=== PATIENT | female | born 2005 | race Caucasian/White ===

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

== ENCOUNTER 2023-12-12 18:29 | Outpatient (RCR) | payer BC, SELFPAY ==
[2023-12-12 19:05] VITALS: BP 127/77; PULSE 88
== END 2024-03-11 23:59 | disposition home or self-care (01) ==
LOC: ANHOBOP 18:29
PROVIDERS: Visit Provider Obstetrics & Gynecology
DX: O36.8120 Decreased fetal movements, second trimester, not applicable or unspecified (principal); Z3A.27 27 weeks gestation of pregnancy
CPT/HCPCS: 59025

== ENCOUNTER 2023-12-24 19:16 | Observation (INO) | payer BC, MEDICAID, SELFPAY ==
--- NOTE | ~2023-12-24 | XR_ITS ---
XR chest 2V Ordering provider: Yolanda Meza MD History: 18 years Female with . cough and fever, 30 WKS , SHIELDED . Comparison: July 12, 2021 FINDINGS: MEDIASTINUM: The cardiac silhouette is not enlarged. LUNGS: No effusions or pneumothorax. Bilateral airspace disease suggestive of pneumonia more on the l eft side is seen in the lower lobes. OTHER: No free air under the diaphragm. IMPRESSION: Bilateral basal pneumonia more on the left side. Reviewed, dictated and finalized at location A.
--- NOTE | ~2023-12-24 | US_ITS ---
EXAMINATION: US OB BPP wo non-stress DATE: 12/26/2023 08:03 INDICATION: Fever. Tachycardia. TECHNIQUE: Real-time pelvic ultrasound was performed. The interpreting radiologist was not present fo r the study. COMPARISON: None. FINDINGS: There is a single living fetus in breech presentation. The placenta is posterior. cardiac acti vity and movement are demonstrated. heart rate is 158 beats per minute (bpm). Biophysical profile performed by the technologist: breathing (30 sec sustained breathing in 30 minutes): 2 out of 2 movement (3 gross body movements in 30 minutes): 2 out of 2 tone (one episode of phigsxt-aujhqxwol-lmfdwia limb movement): 2 out of 2 Amniotic fluid pocket (2 cm): 2 out of 2 Total score: 8 out of 8 IMPRESSION: 1. Single living intrauterine in breech presentation with heart rate of 158 bpm. 2. Normal placenta. 3. Biophysical profile 8 out of 8. Reviewed, dictated and finalized at location B.
[2023-12-24 19:19] VITALS: BP 148/68; PULSE 143; RESP 17; TEMP 37.2; O2SAT 100
--- NOTE | 2023-12-24 19:23 | ECG_ITS ---
Test Date: 2023-12-24 19:27:40 Measurements Intervals [place] Rate: 137 P: 61 RI: 120 QRS: 45 QRSD: 81 T: -22 QT: 261 QTc: 395 Interpretive Statements SINUS TACHYC[address] ST DEVIATION AND MODERATE T-WAVE ABNORMALITY, CONSIDER ANTEROLATERAL ISCHEMIA [-0.1+ mV T WAVE IN V3-V6] No previous ECG available for comparison Electronically Signed On 12-25-2023 08:52:10 CDT by Cortez Santiago M.D.
[2023-12-24] MEDS: ACETAMINOPHEN 500 MG TABLET 1000 MG PO (19:42)
[2023-12-24 19:43] LABS: BEDSIDEPREGUCG Positive
[2023-12-24 19:57] VITALS: PULSE 128
[2023-12-24 20:01] VITALS: RESP 18; O2SAT 100
[2023-12-24 20:05] LABS: Basophils Percent Auto 0.2 % (0.2-1.2); Eosinophils Percent Auto 0.1 % (0-4.4); Hematocrit 35.1 % (37.0-47.0); Hemoglobin 12.1 g/dL (12.0-15.0); Immature Granulocyte Absolute 0.06 K/mm3 (0.00-0.031); Immature Granulocyte Percent A 0.5 % (0-0.5); Lymphocytes Absolute Auto 1.12 K/mm3 (0.9-3.2); Lymphocytes Percent Auto 8.9 % (18.3-44.2); Mean Corpuscular HGB Conc 34.5 g/dl (32-36); Mean Corpuscular Volume 86.9 fl (80-100); Mean Platelet Volume 10.1 fl (7.4-10.4); Monocytes Absolute Auto 0.6 K/mm3 (0.1-0.6); Monocytes Percent Auto 4.7 % (2.6-8.5); Neutrophils Absolute Auto 10.8 K/mm3 (1.3-6.7); Neutrophils Percent Auto 85.6 % (45.5-73.1); Platelet Count Result 211 k/mm3 (150-375); Red Blood Count 4.04 M/mm3 (4.2-5.4); White Blood Count 12.6 K/mm3 (4.5-10.0)
[2023-12-24] MEDS: LACTATED RINGERS 1,000 ML 999 ML IV CONT ×2 (20:08→21:31)
[2023-12-24] MEDS: METOCLOPRAMIDE HCL INJ 10 MG/2 ML VIAL IV PUSH (20:08)
[2023-12-24 20:14] LABS: Add Urine Microscopic? YES; Appearance Urine Cloudy (Clear); Bacteria Urine None Seen /hpf; Bilirubin Urine Negative (Negative); Blood Urine Negative (Negative); Color Urine Yellow (Yellow); Glucose Urine UA Negative (Negative); Ketones Urine 1+ mg/dL (Negative); Leukocyte Esterase Ur Negative LEU/UL (Negative); Nitrate Urine Negative (Negative); Non Pathogenic Casts 0-2; Protein Urine Negative (Negative); RBC Urine 0-2 /hpf (0-2); Squamous Epithelial Cell Urine None Seen /hpf (Few); WBC Urine 0-5 /hpf (0-3)
[2023-12-24 20:15] LABS: Alanine Aminotransferase 14 U/L (6-35); Albumin Level 4.1 g/dL (3.5-5.1); Alkaline Phosphatase 115 U/L (38-126); Anion Gap 10 mmol/L (4-12); Aspartate Amino Transferase 21 U/L (14-36); Bilirubin,Total 0.4 mg/dL (0.2-1.3); Blood Urea Nitrogen 5 mg/dL (7-17); Carbon Dioxide 21 mmol/L (22-30); Chloride 102 mmol/L (98-107); Estimated CRCL calculation 135 ml/min; Estimated Glomerular Filt Rate > 60; Glucose 90 mg/dL (65-110); Potassium 3.7 mmol/L (3.4-5.0); Sodium 133 mmol/L (137-145)
[2023-12-24] MEDS: diphenhydrAMINE HCl INJ 50 MG/ML VIAL 25 MG IV PUSH (20:27)
--- NOTE | 2023-12-24 20:30 | ED.GENADULT ---
HPI - General Adult General Chief complaint: Unspecified Stated complaint: kidney issues - 29 weeks preg Time Seen by Provider: 12/24/23 19:30 History of Present Illness HPI narrative: Patient at 29 weeks a presents here after feeling like she is going to the bathroom more often than usual. She it went to the Urgent Care, but they had a fever and had rapid heart rate, and sent her to here. She denies any pain anywhere. This feels more frequency. No abdominal pain, does have some mild nausea. Related Data Home Medications Medication Instructions Recorded Confirmed ferrous sulfate 27 mg iron tablet 27 mg PO DAILY 07/31/23 12/19/23 vits no.126-ferrous fum tablet PO 07/31/23 11/21/23 28 mg iron-folic acid 800 mcg tablet (Classic ) Allergies Allergy/AdvReac Type Severity Reaction Status Date / Time Penicillins Allergy Severe Rash Verified 12/24/23 19:22 erythromycin base Allergy Mild Rash Verified 12/24/23 19:22 metoclopramide [From Reglan] AdvReac Mild Shakiness Verified 12/24/23 20:16 Review of Systems Review of Systems: All systems reviewed & are unremarkable except as noted in HPI and below PMFSH Past Medical History Medical History Depression Migraines Suppression of menses Surgical History Surgical History History of ear surgery Social History Social History Smoking status: Never smoker Alcohol intake: former Alcohol use details: pt currently Substance use: former Substance use type: marijuana Do You Feel Safe in your Home?: Yes Lack of Transportation: No Lack of Food: Never True Current Housing: I Have Housing Concerned About Future Housing: No Difficulty Paying Gas/Electric Bills: No Difficulty Paying for Meds: No Currently Unemployed: No Education: High School Diploma/GED Difficulty w/ Childcare or Family Care: Decline to Answer Living arrangements: alone Occupation/Education: occupation Gender identity (if verbalized by the patient): Female Sexual Orientation (if Verbalized by the Patient): Straight or Heterosexual Exam Narrative: EXAMINATION OF ORGAN SYSTEMS/BODY AREAS: Constitutional: Vital signs per nursing GENERAL:[No acute distress, non-toxic appearing.] HEAD: Normal with no signs of head trauma. EYES: EOMI, conjunctiva normal ENT: Hearing grossly intact LUNGS: Nonlabored breathing. HEART: Tachycardic ABD: [Soft], [nontender to palpation], gravid EXT: Normal range of motion SKIN: [No rashes or lesions.] NEURO: [Alert and oriented x 3. No gross focal sensory or strength deficits.] PSYCH: Normal affect Course Vital Signs Vital signs: Vital Signs Temperature 99.0 F 12/24/23 19:19 Pulse Rate 143 H 12/24/23 19:19 Respiratory Rate 17 12/24/23 19:19 Blood Pressure 148/68 H 12/24/23 19:19 Pulse Oximetry 100 12/24/23 19:19 Oxygen Delivery Room Air 12/24/23 19:19 Temperature 98.4 F 12/24/23 21:25 Pulse Rate 112 H 12/24/23 20:58 Respiratory Rate 18 12/24/23 20:58 Blood Pressure 112/60 12/24/23 20:58 Pulse Oximetry 100 12/24/23 20:58 Oxygen Delivery Room Air 12/24/23 19:19 Medical Decision Making MDM Narrative Medical decision making narrative: Patient presents with fevers, tachycardia, increased urinary frequency. Denies any pain, no chest pain or shortness of breath. Does have a very slight cough. Fluids and nausea medication ordered, she did have a reaction to the Reglan so she is given a small dose of Benadryl with improvement of her symptoms. On re-evaluation she is feeling fine, denies any symptoms or complaints, however her heart rate still tachycardic so I did give additional fluid boluses. On re-evaluation she still continues to deny any complaints but is still tachycardic and blood
[2023-12-24] MEDS: SODIUM CHLORIDE 0.9% IV 1,000 ML 999 ML IV CONT (20:33)
[2023-12-24 20:58] VITALS: BP 112/60; PULSE 112; RESP 18; O2SAT 100
[2023-12-24 21:25] VITALS: TEMP 36.9
[2023-12-24 21:28] LABS: Influenza A QL RT-PCR Negative (Negative); Influenza B QL RT-PCR Negative (Negative); RSV RNA, RT-PCR Negative (Negative); SARS-CoV-2 RNA PCR Negative (Negative)
[2023-12-24 23:57] VITALS: BP 94/45; PULSE 112; RESP 23; O2SAT 100
[2023-12-25] VITALS (30 sets, daily range): BP systolic 98–121; BP diastolic 39–68; PULSE 112–138; RESP 17–20; TEMP 36.1–39.9; O2SAT 96–100; BMI 26.0; BMI 25.4
[2023-12-25] MEDS: LACTATED RINGERS 1,000 ML 150 ML IV CONT ×3 (00:10→13:59)
--- NOTE | 2023-12-25 00:14 | ADMGEN ---
This patient, Salma Prasad, was admitted to Medical Room 343-01. Patient/family oriented to hospital policies and general routines including ID bracelet, bed and alarms, visiting hours, pain management, procedures, bathroom and other care routines, personal items, smoking policy, room service/diet, and visiting hours. Information on how to activate the Rapid Response Team has been discussed. Patient/Family are encouraged to report perceived risks to care and to ask questions if they do not understand what they are told or what they should do.
--- NOTE | 2023-12-25 08:42 | PC.NURSE ---
This patient, Salma Prasad, was transferred to [facility] on 12/25/23 at 0842. Personal belongings sent with patient. Report given to Naye. Appropriate documentation sent with patibrenda
--- NOTE | 2023-12-25 08:51 | OBADM ---
This patient, Salma Prasad, admitted to the OB room OB Post 115 for observation. Patient/family oriented to hospital policies and general routines including ID bracelet, bed and alarms, visiting hours, pain management, procedures, bathroom and other care routines, personal items, smoking policy, room service/diet, and visiting hours. Patient/Family are encouraged to report perceived risks to care and to ask questions if they do not understand what they are told or what they should do.
[2023-12-25] MEDS: ACETAMINOPHEN 500 MG TABLET 1000 MG PO ×3 (10:08→21:36)
--- NOTE | 2023-12-25 12:28 | PM.IMHP ---
H&P: HPI History of Present Illness Date/Time: 12/25/23 12:28 Chief Complaint: fever Narrative: Salma is a 18yo @ 30.2wks who presented to the ER with fevers and overall feeling unwell. She reports some urinary frequency/urgency. She has been having fevers; as high as 102, which decreased after tylenol. She reports some nausea, mild loose stool. She denies any URI symptoms. She has had a mild cough, not productive. She denies any abdominal pain. no vaginal bleeding. No change in vaginal discharge. Good movement. She has not necessarily been around anyone that she knows is sick, but does work at a daycare. RSV/influenza/covid testing was all negative. Her urine was cloudy/dirty-- concerning for pyelo. 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- [facility]/genetics referral - H/o UTIs-- now w/ first admission for pyelo Review of Systems Constitutional: Constitutional: Reports chills, Reports fever(s) and Denies headache(s) Eyes: Eyes: Denies change in vision ENT: Denies headache(s), Denies nasal congestion, Denies sinus pain and Denies sore throat Cardiovascular: Cardiovascular: Denies chest pain, Reports rapid heart rate and Denies dyspnea Respiratory: Respiratory: Reports cough, Denies excessive phlegm production, Denies dyspnea and Denies wheezing Gastrointestinal: Gastrointestinal: Denies abdominal pain, Denies heartburn, Reports loose stools and Reports nausea Genitourinary: Genitourinary: Denies abnormal vaginal bleeding, Reports urinary hesitancy, Reports urinary urgency and Denies vaginal discharge Integumentary/Breasts: Skin/Breast: Denies breast pain Neurologic: Denies headache(s) Psychiatric: Psychiatric: Denies anxiety and Denies depression PMF Past Medical History Medical History Depression Migraines Suppression of menses Surgical History Surgical History History of ear surgery Family History Family History (Updated 12/25/23 @ 00:16 by Rosibel Alanis RN) Mother Acute myocardial infarction Hypertension Sibling Asthma Grandparent Cerebrovascular accident History of blood clots Diabetes mellitus Hypertension Social History Social History Smoking status: Former smoker Alcohol intake: never Alcohol use details: pt currently Substance use: never Substance use type: marijuana Do You Feel Safe in your Home?: Yes Lack of Transportation: No Lack of Food: Never True Current Housing: I Have Housing Concerned About Future Housing: No Difficulty Paying Gas/Electric Bills: No Difficulty Paying for Meds: No Currently Unemployed: No Education: High School Diploma/GED Difficulty w/ Childcare or Family Care: No Living arrangements: alone Occupation/Education: occupation Gender identity (if verbalized by the patient): Female Sexual Orientation (if Verbalized by the Patient): Straight or Heterosexual Spiritual care concerns: No Meds Home Medications and Allergies Home Medications Medication Instructions Recorded Confirmed Type ferrous sulfate 27 mg iron tablet 27 mg PO DAILY 07/31/23 12/25/23 History vits no.126-ferrous fum 1 tablet PO DAILY 07/31/23 12/25/23 History 28 mg iron-folic acid 800 mcg tablet (Classic ) Allergies Allergy/AdvReac Type Severity Reaction Status Date / Time Penicillins Allergy Severe Rash Verified 12/24/23 19:22 erythromycin base Allergy Mild Rash Verified 12/24/23 19:22 metoclopramide [From Reglan] AdvReac Mild Shakiness Verified 12/24/23 20:16 Vital Signs Vital Signs - 24 hr 12/24/23 19:19 12/24/23 19:57 12/24/23 20:01 Temperature 99.0 F Pulse Rate 143 H 128 H Respiratory Rate 17 18 Blood Pressure 148/68 H Pulse Oximetry 100 100 Oxygen
[2023-12-25 15:16] LABS: Add Urine Microscopic? NO; Appearance Urine Clear (Clear); Bilirubin Urine Negative (Negative); Blood Urine Negative (Negative); Color Urine Yellow (Yellow); Glucose Urine UA Negative (Negative); Ketones Urine 1+ mg/dL (Negative); Leukocyte Esterase Ur Negative LEU/UL (Negative); Nitrate Urine Negative (Negative); Protein Urine Negative (Negative); Specific Grav Ur 1.008 (1.001-1.035)
[2023-12-25 18:07] LABS: Basophils Percent Auto 0.1 % (0.2-1.2); Eosinophils Percent Auto 0.1 % (0-4.4); Hematocrit 30.8 % (37.0-47.0); Hemoglobin 10.4 g/dL (12.0-15.0); Immature Granulocyte Absolute 0.08 K/mm3 (0.00-0.031); Immature Granulocyte Percent A 0.6 % (0-0.5); Lymphocytes Absolute Auto 1.03 K/mm3 (0.9-3.2); Lymphocytes Percent Auto 8.1 % (18.3-44.2); Mean Corpuscular HGB Conc 33.8 g/dl (32-36); Mean Corpuscular Hemoglobin 29.6 pg (26-34); Mean Corpuscular Volume 87.7 fl (80-100); Mean Platelet Volume 10.2 fl (7.4-10.4); Monocytes Absolute Auto 0.6 K/mm3 (0.1-0.6); Monocytes Percent Auto 4.3 % (2.6-8.5); Neutrophils Percent Auto 86.8 % (45.5-73.1); Platelet Count Result 193 k/mm3 (150-375); Red Blood Count 3.51 M/mm3 (4.2-5.4); Red Cell Distribution Width 13.1 % (11.5-14.5); White Blood Count 12.7 K/mm3 (4.5-10.0)
[2023-12-25 18:17] LABS: Lactic Acid Reflex 0.7 mmol/L (0.7-2.0)
[2023-12-25 18:19] LABS: Anion Gap 8 mmol/L (4-12); Blood Urea Nitrogen 4 mg/dL (7-17); Calcium 8.5 mg/dL (8.4-10.2); Carbon Dioxide 18 mmol/L (22-30); Chloride 106 mmol/L (98-107); Estimated CRCL calculation 135 ml/min; Estimated Glomerular Filt Rate > 60; Glucose 100 mg/dL (65-110); Potassium 3.1 mmol/L (3.4-5.0); Sodium 132 mmol/L (137-145)
[2023-12-25 18:22] LABS: CRP 7.2 mg/dL (<1.0)
--- NOTE | 2023-12-25 18:35 | WPDCN ---
Assessment and Plan Assessment and plan (1) Sepsis: Code(s): A41.9 - Sepsis, unspecified organism Status: Acute Assessment and Plan: Patient meets sepsis criteria with fever, tachycardia, and leukocytosis in the setting of pneumonia. Blood pressures have been stable and lactic acid level is within normal limits. Blood and sputum cultures have been ordered and are pending. (2) Bilateral pneumonia: Code(s): J18.9 - Pneumonia, unspecified organism Status: Acute Assessment and Plan: Chest x-ray shows basilar pneumonia, more so on the left. Repeat viral panel in a.m. given community prevalence of COVID right now. Continue ceftriaxone 2 g Q 24 hours. Unable to cover atypicals (erythromycin allergy; fluoroquinolones and tetracyclines are contraindicated in ). Legionella urinary antigen and mycoplasma IgM pending. (3) Hypokalemia: Code(s): E87.6 - Hypokalemia Status: Acute Assessment and Plan: Potassium will be replaced and monitored. Thus far she has received 5 L crystalloids IV. Sodium is dropping, hold further IV fluids and encourage oral intake. Repeat electrolytes ordered for a.m. Plan Thank you for allowing us to participate in this patient's care. Please do not hesitate to contact us with any questions. HPI Data of Consult Date/Time: 12/25/23 17:00 Requesting Physician: Yolanda Meza MD Consult Narrative Reason for consult: Pnuemonia. Narrative: This is a previously healthy very pleasant 18-year-old female ( at 32.2 weeks) who was admitted through the emergency department yesterday evening with fevers and generalized malaise, found to have pneumonia. The hospitalist service has been consulted in the setting. Two nights ago she started to feel unwell quite suddenly with generalized body aches, headache, malaise, nausea, poor appetite, nonproductive cough, loose stools, and fever up to 102? F. She has no known sick contacts but does work at a daycare. She denies sinus congestion, sore throat, chest pain, pleuritic pain, vomiting, dysuria, abdominal pain, and back pain. Since arrival: She has had a T-max of 103.5? F. She has been persistently tachycardic in the low 100s to 120s. Blood pressures have been stable. Labs drawn today were significant for WBC count 12.7, hemoglobin 10.4, platelet 193, sodium 132, potassium 3.1, BUN 4, creatinine 0.50, CRP 7.2. Urine obtained yesterday was positive for 1+ ketones. Chest x-ray showed bilateral basal pneumonia, more so on the left. She has been receiving acetaminophen for her fever, ceftriaxone, and lactated Ringer's. Review of Systems Review of Systems: 12 systems were reviewed and are negative except for as per HPI. [facility] Past Medical History Medical History (Updated 12/25/23 @ 19:20 by Keesha Garcia PA-C) Depression Migraines Surgical History Surgical History (Updated 12/25/23 @ 19:16 by Keesha Garcia PA-C) History of ear surgery Repair perforated eardrum. Family History Family History Mother Acute myocardial infarction Hypertension Sibling Asthma Grandparent Cerebrovascular accident History of blood clots Diabetes mellitus Hypertension Social History Social History (Updated 12/25/23 @ 19:17 by Keesha Garcia PA-C) Social History: Surrogate medical decision maker: Tia Prasad, mother. Code status: Full code. Smoking status: Former smoker Alcohol intake: never Substance use: never Do You Feel Safe in your Home?: Yes Lack of Transportation: No Lack of Food: Never True Current Housing: I Have Housing Concerned About Future Housing: No Difficulty Paying Gas/Electric Bills: No Difficulty Paying for Meds: No Currently Unemployed: No Education: High School Diploma/GED Difficulty w/ Childcare or Family Care: No Additional living arrangements comments: Lives wi
[2023-12-25 18:46] LABS: Procalcitonin 0.2 ng/mL
[2023-12-25] MEDS: FAMOTIDINE 20 MG/2 ML VIAL IV PUSH (20:05)
[2023-12-25] MEDS: ONDANSETRON INJ 4 MG/2 ML VIAL IV PUSH (20:06)
--- NOTE | 2023-12-25 20:15 | PC.NURSE ---
Called Mena Garcia hospitalist, reported temp 101.7. tylenol is not due another two hours. Hospitalist aware, no new orders.
[2023-12-25] MEDS: SODIUM CHLORIDE 0.9% IV 1,000 ML 100 ML IV CONT (21:00)
[2023-12-25] MEDS: POTASSIUM CHLORIDE INJ 40 MEQ in SODIUM CHLORIDE 0.9% IV 500 ML 130 MEQ IVPB (21:00)
[2023-12-25] MEDS: cefTRIAXone 2 GM/NS 100 ML 2 GM/100 ML BAG IVPB (22:55)
[2023-12-26] VITALS (73 sets, daily range): BP systolic 97–117; BP diastolic 34–66; PULSE 114–162; RESP 18; TEMP 37.6–39.9; O2SAT 89–100
[2023-12-26] MEDS: ACETAMINOPHEN 325 MG TABLET 650 MG PO ×5 (03:10→18:43)
[2023-12-26 04:48] LABS: Hematocrit 29.2 % (37.0-47.0); Hemoglobin 9.6 g/dL (12.0-15.0); Mean Corpuscular HGB Conc 32.9 g/dl (32-36); Mean Corpuscular Hemoglobin 29.1 pg (26-34); Mean Corpuscular Volume 88.5 fl (80-100); Mean Platelet Volume 10.2 fl (7.4-10.4); Platelet Count Result 175 k/mm3 (150-375); Red Cell Distribution Width 13.2 % (11.5-14.5); White Blood Count 12.7 K/mm3 (4.5-10.0)
[2023-12-26 05:11] LABS: Anion Gap 9 mmol/L (4-12); Carbon Dioxide 15 mmol/L (22-30); Chloride 107 mmol/L (98-107); Estimated CRCL calculation 135 ml/min; Estimated Glomerular Filt Rate > 60; Glucose 101 mg/dL (65-110); Magnesium 1.5 mg/dL (1.6-2.3); Potassium 3.1 mmol/L (3.4-5.0); Sodium 131 mmol/L (137-145)
[2023-12-26 05:14] LABS: Blood Urea Nitrogen < 2 mg/dL (7-17)
--- NOTE | 2023-12-26 06:54 | PM.OBPNVD ---
OB - PN: Subj Subjective Date/time seen: 12/26/23 07:15 Narrative: HD #2 Salma is a 18yo @ 30.3wks admitted with sepsis 2/2 pneumonia. She continues to be febrile overnight, getting Tylenol regularly. Having more of a productive cough, SOB with ambulating. Feeling good movements. No contractions, VB or LOF. No new symptoms overnight. Has tolerated regular diet (had emesis x1 yesterday, 12/24, after PO potassium). OB - PN: Obj Data Labs 12/26/23 04:50 12/26/23 05:00 Labs: Laboratory Results - last 24 hr 12/24/23 12/25/23 12/25/23 20:35 14:47 17:53 WBC RBC Hgb Hct MCV MCH MCHC RDW Plt Count MPV Immature Gran % (Auto) Neut % (Auto) Lymph % (Auto) [place] % (Auto) Eos % (Auto) Baso % (Auto) Lymph # (Auto) [place] # (Auto) Eos # (Auto) Baso # (Auto) Abs Immat Gran (auto) Absolute Neuts (auto) Absolute Nucleated RBC Nucleated RBC % Sodium 132 L Potassium 3.1 L Chloride 106 Carbon Dioxide 18 L Anion Gap 8 BUN 4 L Creatinine 0.50 L Estim Creat Clear Calc 135 Estimated GFR > 60 Glucose 100 Lactic Acid Calcium 8.5 C-Reactive Protein 7.2 H Procalcitonin Urine Color Yellow Urine Appearance Clear Urine pH 7.0 Ur Specific [place] 1.008 Urine Protein Negative Urine Glucose (UA) Negative Urine Ketones 1+ H Ur Blood (Man) Negative Urine Nitrate Negative Urine Bilirubin Negative Urine Urobilinogen 1.0 Ur Leukocyte Esterase Negative Influenza A (RT-PCR) Negative Influenza B (RT-PCR) Negative RSV (RT-PCR) Negative SARS-CoV-2 RNA (RT-PCR) Negative 12/25/23 12/25/23 17:54 17:55 WBC 12.7 H RBC 3.51 L Hgb 10.4 L Hct 30.8 L MCV 87.7 MCH 29.6 MCHC 33.8 RDW 13.1 Plt Count 193 MPV 10.2 Immature Gran % (Auto) 0.6 H Neut % (Auto) 86.8 H Lymph % (Auto) 8.1 L [place] % (Auto) 4.3 Eos % (Auto) 0.1 Baso % (Auto) 0.1 L Lymph # (Auto) 1.03 [place] # (Auto) 0.6 Eos # (Auto) 0.0 Baso # (Auto) 0.0 Abs Immat Gran (auto) 0.08 H Absolute Neuts (auto) 11.0 H Absolute Nucleated RBC 0.000 Nucleated RBC % 0.0 Sodium Potassium Chloride Carbon Dioxide Anion Gap BUN Creatinine Estim Creat Clear Calc Estimated GFR Glucose Lactic Acid 0.7 Calcium C-Reactive Protein Procalcitonin 0.2 Urine Color Urine Appearance Urine pH Ur Specific [place] Urine Protein Urine Glucose (UA) Urine Ketones Ur Blood (Man) Urine Nitrate Urine Bilirubin Urine Urobilinogen Ur Leukocyte Esterase Influenza A (RT-PCR) Influenza B (RT-PCR) RSV (RT-PCR) SARS-CoV-2 RNA (RT-PCR) Imaging Radiologist's impression: Impressions Chest X-Ray 12/25/23 15:04 IMPRESSION: Bilateral basal pneumonia more on the left side. OB - PN A/P Assessment and Plan (1) : Code(s): Z34.90 - Encounter for supervision of normal , unspecified, unspecified trimester Status: Acute (2) Sepsis: Code(s): A41.9 - Sepsis, unspecified organism Status: Acute (3) Bilateral pneumonia: Code(s): J18.9 - Pneumonia, unspecified organism Status: Acute Plan - Continues to remain febrile overnight, vitals otherwise stable, tachycardia noted (low 100's can be normal in ) - Continue tylenol 1000mg q6h PRN - Hospitalist team following; - Covid/rsv/influzena neg on admission; plan for repeat testing 12/26/23 AM - Continue Ceftriaxone 2g IV q24 hr ([place] pharmacy consulted due to pt's antibiotic allergies) - Urine, blood, sputum cultures pending - Testing for atypical pneumonia in urine pending (not currently being covered due to allergies/unsafe medications in ) - Giving IV potassium -- goal of 3.5 in - Will monitor strict I&O's; fluid requirements higher i
--- NOTE | 2023-12-26 07:12 | PC.NURSE ---
9570--Pt reports that she is 'feeling a bit better. No complaints at this time.
--- NOTE | 2023-12-26 07:20 | PC.NURSE ---
0720--Dr. Meza at bedside. Plan of care discussed.
--- NOTE | 2023-12-26 07:55 | PC.NURSE ---
0728--US at bedside for BPP.
--- NOTE | 2023-12-26 08:17 | PC.NURSE ---
0800--Pt feels chilly. Temperature taken. 102.1.
[2023-12-26] MEDS: LACTATED RINGERS 1,000 ML 75 ML IV CONT (08:28)
[2023-12-26 10:44] LABS: Influenza A QL RT-PCR Negative (Negative); Influenza B QL RT-PCR Negative (Negative); RSV RNA, RT-PCR Negative (Negative); SARS-CoV-2 RNA PCR Negative (Negative)
--- NOTE | 2023-12-26 11:06 | PC.NURSE ---
1106--Hospitalist at bedside. Plan of care discussed.
[2023-12-26] MEDS: FERROUS SULFATE DRIED 142 MG TABCR PO (14:01)
[2023-12-26] MEDS: MULTIVIT/MIN/PREN/FOL AC/IRON TABLET 1 TAB PO (14:02)
[2023-12-26] MEDS: IPRATROPIUM 0.5 MG/ALBUTEROL SULFATE 2.5 MG AMPUL.NEB 3 ML INHALATION (14:15)
--- NOTE | 2023-12-26 14:51 | PC.NURSE ---
1420--Respiratory at bedside to administer Neb treatment and incentive spirometer.
--- NOTE | 2023-12-26 16:03 | PM.IMPN ---
Progress Note: A&P Assessment and Plan (1) Depression: Code(s): F32.9 - Major depressive disorder, single episode, unspecified Status: Acute (2) Tachycardia: Code(s): R00.0 - Tachycardia, unspecified Status: Acute (3) Fever: Code(s): R50.9 - Fever, unspecified Status: Acute (4) Sepsis: Code(s): A41.9 - Sepsis, unspecified organism Status: Acute (5) Bilateral pneumonia: Code(s): J18.9 - Pneumonia, unspecified organism Status: Acute (6) Hypokalemia: Code(s): E87.6 - Hypokalemia Status: Acute (7) Hypomagnesemia: Code(s): E83.42 - Hypomagnesemia Status: Acute Plan The patient has a metabolic acidosis and hyponatremia. She has been switched to lactated Ringer's which may of the acidosis. She also has hypokalemia and hypo magnesemia. Check a BMP magnesium to assess the trend all of the above aforementioned labs. Check urine sodium and urine osmolality. Could be due to cough/pneumonia/emesis/low solute diet/sepsis. She believes her symptoms are improved today. Continue ceftriaxone, not giving coverage for atypical pneumonia due to and allergies. Pending mycoplasma and Legionella antigen. t max 102.1 Blood urine and sputum cultures are pending. A repeat quad viral screen was taken this morning which was negative again. Will defer DVT prophylaxis in the setting of to OB Gyne team. A obstetric profile this morning was 8/8. Full code Subjective Date/time seen: 12/26/23 16:03 Interval history: No major acute overnight events. Patient reports she had a worsening cough with yellow productive sputum overnight along with fevers. Morning they have began to resolve. She had emesis x1. No diarrhea. No abdominal pain. Review of Systems Review of Systems: All systems reviewed & are unremarkable except as noted in HPI and below (Subjective) Exam Const: General: comfortable and no acute distress Eyes: Pupils: Equal, round and reactive pupils present Neck: Neck: supple Resp: Effort & Inspection: normal respiratory effort Auscultation: clear to auscultation bilaterally Cardio: Rate: regular rate Rhythm: regular rhythm GI: GI Palp: Yes Soft to palpation Extrem: General: no edema Objective Data Vital Signs Vital Signs: Vital Signs - 24 hr 12/25/23 16:30 12/25/23 17:00 12/25/23 17:30 Temperature Pulse Rate 138 H 130 H 135 H Respiratory Rate Blood Pressure 110/50 L 110/53 L 119/58 L Pulse Oximetry Oxygen Delivery 12/25/23 17:48 12/25/23 18:00 12/25/23 18:30 Temperature 101.2 F H Pulse Rate 129 H 117 H Respiratory Rate Blood Pressure 116/59 L 111/60 Pulse Oximetry Oxygen Delivery 12/25/23 19:03 12/25/23 22:47 12/25/23 23:00 Temperature 100.8 F H Pulse Rate 122 H Respiratory Rate Blood Pressure 98/39 L Pulse Oximetry 96 Oxygen Delivery 12/25/23 23:32 12/26/23 01:08 12/26/23 01:13 Temperature 99.1 F Pulse Rate Respiratory Rate Blood Pressure Pulse Oximetry 92 96 Oxygen Delivery 12/26/23 01:00 12/26/23 03:05 12/26/23 03:07 Temperature 101.6 F H 103.3 F H Pulse Rate 138 H Respiratory Rate Blood Pressure 97/34 L Pulse Oximetry Oxygen Delivery 12/26/23 04:37 12/26/23 05:46 12/26/23 06:46 Temperature 102.3 F H 99.7 F H Pulse Rate 118 H Respiratory Rate Blood Pressure 117/60 Pulse Oximetry Oxygen Delivery 12/26/23 07:00 12/26/23 07:02 12/26/23 07:07 Temperature 100.8 F H Pulse Rate 118 H Respiratory Rate Blood Pressure 116/66 Pulse Oximetry 98 100 Oxygen Delivery 12/26/23 07:12 12/26/23 07:17 12/26/23 07:22 Temperature Pulse Rate Respiratory Rate Blood Pressure Pulse Oximetry 100 100 100 Oxygen Delivery 12/26/23 07:27 12/26/23 09:15 12/26/23 09:20 Temperature Pulse Rate Respiratory Rate Blood Pressure Pulse Oxim
[2023-12-26] MEDS: POTASSIUM CHLORIDE INJ 40 MEQ in SODIUM CHLORIDE 0.9% IV 500 ML 130 MEQ IVPB (16:28)
[2023-12-26 16:38] LABS: Basophils Percent Auto 0.3 % (0.2-1.2); Hematocrit 29.2 % (37.0-47.0); Hemoglobin 10.1 g/dL (12.0-15.0); Immature Granulocyte Absolute 0.08 K/mm3 (0.00-0.031); Immature Granulocyte Percent A 0.7 % (0-0.5); Lymphocytes Absolute Auto 0.71 K/mm3 (0.9-3.2); Lymphocytes Percent Auto 5.9 % (18.3-44.2); Mean Corpuscular HGB Conc 34.6 g/dl (32-36); Mean Corpuscular Hemoglobin 30.2 pg (26-34); Mean Corpuscular Volume 87.4 fl (80-100); Mean Platelet Volume 10.3 fl (7.4-10.4); Monocytes Absolute Auto 0.4 K/mm3 (0.1-0.6); Neutrophils Absolute Auto 10.8 K/mm3 (1.3-6.7); Neutrophils Percent Auto 90.1 % (45.5-73.1); Platelet Count Result 197 k/mm3 (150-375); Red Blood Count 3.34 M/mm3 (4.2-5.4); Red Cell Distribution Width 13.3 % (11.5-14.5)
[2023-12-26 16:53] LABS: Anion Gap 9 mmol/L (4-12); Calcium 8.1 mg/dL (8.4-10.2); Carbon Dioxide 16 mmol/L (22-30); Chloride 106 mmol/L (98-107); Estimated CRCL calculation 164 ml/min; Estimated Glomerular Filt Rate > 60; Glucose 115 mg/dL (65-110); Magnesium 1.6 mg/dL (1.6-2.3); Potassium 3.5 mmol/L (3.4-5.0); Sodium 131 mmol/L (137-145)
[2023-12-26 16:55] LABS: Blood Urea Nitrogen < 2 mg/dL (7-17)
--- NOTE | 2023-12-26 17:11 | PC.NURSE ---
1655--Ice packs placed under armpits and behind neck and knees.
--- NOTE | 2023-12-26 17:13 | PC.NURSE ---
1453--Message left with hospitalist.
--- NOTE | 2023-12-26 17:53 | PC.NURSE ---
1750--Dr. Valladares returned call. Will confer with Dr. Meza on adding antibiotic that is compatible with .
[2023-12-26] MEDS: CEFEPIME 2 GM/NS 50 ML 2 GM/50 ML BAG IVPB (18:38)
[2023-12-26 18:43] LABS: Sodium Urine Random 113 meq/L
[2023-12-26] MEDS: ONDANSETRON INJ 4 MG/2 ML VIAL IV PUSH (18:43)
[2023-12-26] MEDS: CALCIUM CARBONATE (TUMS) 500 MG (200 MG ELEMENTAL) PO (19:26)
--- NOTE | 2023-12-27 13:02 | PM.TDS ---
Transfer Discharge Sum: Prov Provider Date of admission: 12/24/23 23:14 Primary care physician: UNKNOWN,DOCTOR Admitting clinician: Yolanda Meza MD Attending physician on admission: Yolanda Meza Consults: Hospitalist team and ID Pharmacy Attending physician on discharge: Yolanda Meza Anticipated date of transfer: 12/26/23 Receiving physician/facility: [facility] -- Maternal Medicine team DS: Admitting Diagnosis Discharge Date 12/26/23 Admitting Diagnosis Sepsis DS: Discharge Diagnosis Discharge Diagnosis (1) Sepsis: Code(s): A41.9 - Sepsis, unspecified organism Status: Acute (2) Bilateral pneumonia: Code(s): J18.9 - Pneumonia, unspecified organism Status: Acute (3) : Code(s): Z34.90 - Encounter for supervision of normal , unspecified, unspecified trimester Status: Acute Transfer Discharge Sum: Med Medications Active and Home Medications: Home Medications ferrous sulfate 27 mg iron tablet 27 mg PO DAILY 07/31/23 [History Confirmed 12/25/23] vits no.126-ferrous fum 28 mg iron-folic acid 800 mcg tablet (Classic ) 1 tablet PO DAILY 07/31/23 [History Confirmed 12/25/23] Transfer Discharge Sum: Hosp Hospital Course Hospital course: Salma Prasad is a 18 yo @ 30.3wks who was transferred to [facility] Maternal medicine via speciality transport due to worsening condition of sepsis. She was admitted late on the evening of 12/24/23. She presented to the ER with fevers and overall feeling unwell. She reports some urinary frequency/urgency. She has been having fevers; as high as 102, which decreased after Tylenol. She reported some nausea, mild loose stool. She denied any URI symptoms. She had a mild cough, not productive. She denied any abdominal pain. no vaginal bleeding. No change in vaginal discharge. Good movement. She had not necessarily been around anyone that she knew was sick, but does work at a daycare. RSV/influenza/covid testing was all negative. She was started on ceftriaxone for possible pyelonephritis. During her admission, she continued to spike fevers through regularly scheduled Tylenol (urine culture was pending from the ER), but blood cultures were then sent (had received one dose of ceftriaxone). She then endorsed on HD#2 that her cough was worse and becoming productive. Chest XR was then ordered and did show pneumonia. She has allergies to PCN and erythromycin. The hospitalist team was then consulted to assist in the treatment of pneumonia. Due to her allergies, ID pharmacy was consulted, who recommended increasing the Ceftriaxone to 2g IV q24hr. Sputum cultures were sent, as well as urine testing for pneumonia antigens. On HD #3, repeat COVID/RSV/influenza testing was once again negative. She continued to spike fevers, and at 1600, she was found to have a fever of 103.8. She continued to remain tachycardic through IV hydration and continuation of scheduled Tylenol. Her oxygen saturation was ranging between 91-94% on room air. Blood cultures were preliminarily negative at this time. At this point, the hospitalist and I both felt that the patient would benefit from additional antibiotics (but has multiple antibiotic allergies, and multiple that are not safe in ) and decided the best decision was to transfer care to a higher level unit (MFM at [facility]). The MFM team was contacted, who agreed, that she should be transferred, and was transferred that evening via the Speciality Maternal Transport team. monitoring was performed during her stay, and overall remained reassuring, tachycardia was noted, but good variability with accelerations were noted. On HD #3, BPP was 8/8. Time Spent with Patient Time attestation: Total time spent providing and/or coordinating transfer services: Exam Const: General: cooperative, no acute distress and ill appearing (clammy/sweaty) Orientation/consciousness: patie
[2023-12-29 17:37] LABS: Pneumococcal Antigen Urine NOT DETECTED
[2023-12-29 18:08] LABS: Mycoplasma IgM Antibody Titer 228 U/mL
[2023-12-31 12:44] LABS: Osmolality, Urine 301 mOsm/kg (50-1200)
[2024-01-02 04:07] LABS: Legionella pneumophila Ag Ur NOT DETECTED
== END 2023-12-26 20:00 | disposition short-term general hospital (02) ==
LOC: ANHED 23:28 → ANH3MED 12-25 00:01 → ANHOBPP 12-25 08:52
PROVIDERS: General Practice; Physician Assistant; Admitting Provider Obstetrics & Gynecology; Emergency Provider Emergency Medicine; Visit Provider Obstetrics & Gynecology
DX: O98.813 Other maternal infectious and parasitic diseases complicating pregnancy, third trimester (principal); A41.9 Sepsis, unspecified organism; O99.513 Diseases of the respiratory system complicating pregnancy, third trimester; J18.9 Pneumonia, unspecified organism; O99.283 Endocrine, nutritional and metabolic diseases complicating pregnancy, third trimester; E87.6 Hypokalemia; E83.42 Hypomagnesemia; O99.343 Other mental disorders complicating pregnancy, third trimester; F32.9 Major depressive disorder, single episode, unspecified; Z20.822 Contact with and (suspected) exposure to COVID-19; Z3A.30 30 weeks gestation of pregnancy; Z87.891 Personal history of nicotine dependence
CPT/HCPCS: 36415; 71046; 76819; 80048; 80053; 81001; 81003; 81025; 83605; 83735; 83930; 83935; 84145; 84300; 85025; 85027; 86140; 86738; 87040; 87070; 87086; 87205; 87449; 87637; 87899; 93005; 94640; 96361; 96365; 96366; 96367; 96375; 96376; 99285; A9270; G0378; J0692; J0696; J1200; J2405; J2765; J3480; J7030; J7040; J7120